=== PATIENT | male | born 1960 | race Caucasian/White ===

== ENCOUNTER 2018-06-15 12:57 | Outpatient (RCR) ==
[2018-06-15 14:18] VITALS: TEMP 208.6; BMI 29.4
[2018-06-16 10:02] VITALS: BP 106/58
== END 2018-06-25 23:59 ==
LOC: CAR.REHAB 12:57
PROVIDERS: ATTEND Nurse Practitioner Acute Care
DX: I25.10 Atherosclerotic heart disease of native coronary artery without angina pectoris (principal)
CPT/HCPCS: 93798

== ENCOUNTER 2018-06-26 06:53 | Outpatient (RCR) | END 2018-07-23 23:59 | LOC: CAR.REHAB 06:53 | PROVIDERS: ATTEND Nurse Practitioner Acute Care | DX: I25.10 Atherosclerotic heart disease of native coronary artery without angina pectoris (principal) ==

== ENCOUNTER 2018-07-24 06:13 | Outpatient (RCR) | END 2018-08-23 23:59 | LOC: CAR.REHAB 06:13 | PROVIDERS: ATTEND Nurse Practitioner Acute Care | DX: I25.10 Atherosclerotic heart disease of native coronary artery without angina pectoris (principal) ==

== ENCOUNTER 2018-08-24 06:37 | Outpatient (RCR) | END 2018-09-02 09:23 | disposition home or self-care (01) | LOC: CAR.REHAB 06:37 | PROVIDERS: ATTEND Nurse Practitioner Acute Care | DX: I25.10 Atherosclerotic heart disease of native coronary artery without angina pectoris (principal) ==